=== PATIENT | male | born 1990 | race Caucasian/White ===

== ENCOUNTER 2018-09-17 10:22 | Emergency (ER) | payer MEDICAID ==
[~2018-09-17] VITALS: Ht 180.3 cm; Wt 106.0 kg
[~2018-09-17 10:22] MED LIST: ARIP30TA7 PO; BENZ1TAB7 PO; CARB200T PO; CLON-527 PO; DIVA500T9 PO; HALO5AMP2 IM; LORA1TAB PO; QUET300T2 PO
[2018-09-17] MEDS ORDERED: acetaminophen 325mg tablet PO ONE (10:40)
[2018-09-17] MEDS ORDERED: normal saline 1000ML IV soln IVB ONE (10:40)
[2018-09-17 11:25] LABS: CLARITY,URINE CLEAR (Clear); COLOR,URINE YELLOW (Yellow); GLUCOSE, URINE NEGATIVE (Neg); KETONES,URINE NEGATIVE (Neg); LEUKOCYTE ESTERASE ,URINE NEGATIVE (Neg); NITRITES, URINE NEGATIVE (Neg); OCCULT BLOOD,URINE NEGATIVE (Neg); PROTEIN,URINE 100 mg/dl (Neg); UROBILINOGEN,URINE 0.2 E.U/dL (0.2-1.0)
[2018-09-17 11:28] LABS: BASOPHILS % (AUTO) 0.3 % (0-1); EOSINOPHILS # (AUTO) 0.1 X10'3 (0-0.9); HEMATOCRIT 36.7 % (42.0-52.0); HEMOGLOBIN 12.8 g/dl (14.0-17.9); LYMPHOCYTES # (AUTO) 0.8 X10'3 (1.1-4.8); LYMPHOCYTES % (AUTO) 11.2 % (21-51); MEAN CORPUSCULAR HEMOGLOBIN 32.5 PG (27.0-31.0); MEAN CORPUSCULAR HGB CONC 34.9 % (33.0-36.5); MEAN CORPUSCULAR VOLUME 93.2 FL (78-98); MEAN PLATELET VOLUME 9.7 FL (7.4-10.4); MONOCYTES # (AUTO) 1.4 X10'3 (0-0.9); MONOCYTES % (AUTO) 19.4 % (2-12); NEUTROPHILS # (AUTO) 4.8 X10'3 (1.8-7.7); NEUTROPHILS % (AUTO) 68.1 % (42-75); PLATELET COUNT 109 X10'3 (140-440); RED BLOOD COUNT 3.94 X10'6 (4.70-6.10); RED CELL DISTRIBUTION WIDTH 12.4 % (11.5-14.5)
[2018-09-17 11:29] LABS: UA COLLECTION TYPE URINAL
[2018-09-17 11:33] LABS: BACTERIA,URINE 1+ /HPF (Neg); CELLULAR CAST 0-4 /LPF (NEGATIVE); COARSE GRANULAR CAST 0-3 /LPF (NEGATIVE); MUCUS STRANDS FEW /LPF (Neg); RBC,URINE 0-2 /HPF (0-2); SQUAMOUS EPITHELIAL CELL,UR FEW /LPF (FEW); WBC,URINE 30-50 /HPF (0-4)
[2018-09-17 11:43] LABS: ALANINE AMINOTRANSFERASE 67 U/L (12-78); ALBUMIN 3.5 G/DL (3.4-5.0); ALKALINE PHOSPHATASE 52 IU/L (46-116); ANION GAP 10 (8-16); ASPARTATE AMINO TRANSFERASE 80 U/L (10-37); BILIRUBIN,TOTAL 0.3 MG/DL (0.1-1.0); BLOOD UREA NITROGEN 18 MG/DL (7-18); CALCIUM 8.1 MG/DL (8.5-10.1); CHLORIDE 99 MMOL/L (99-107); CREATININE 2.01 MG/DL (0.60-1.10); GLUCOSE 95 MG/DL (70-104); SODIUM 135 MMOL/L (135-145); TOTAL CARBON DIOXIDE 25.7 MMOL/L (24-32); eGFR 40 ML/MIN
[2018-09-17] MEDS ORDERED: normal saline 1000ml 1,000 ML IV ONE (12:45)
--- NOTE | 2018-09-17 13:57 | NUR ---
influenza A POSITIVE REPORTED TO SUZETTE MILLER
[2018-09-17] MEDS ORDERED: TAM75C PO (13:59)
[2018-09-17] MEDS ORDERED: CEPH-572 PO (14:04)
[2018-09-17] MEDS ORDERED: ONDA4TAB6 PO (14:05)
--- NOTE | 2018-09-17 14:26 | NUR ---
GISELA DIRECTOR AT [facility] CALLED. INFORMED HER OF DX. AND WILL BE PICKING PT UP IN 45MINUTES.
[2018-09-17 14:30] VITALS: BP 128/58
== END 2018-09-17 14:43 | disposition home or self-care (01) ==
LOC: ER 10:23
DX: J09.X2 Influenza due to identified novel influenza A virus with other respiratory manifestations (principal); E86.0 Dehydration; N39.0 Urinary tract infection, site not specified; F17.210 Nicotine dependence, cigarettes, uncomplicated; F15.90 Other stimulant use, unspecified, uncomplicated; Z88.0 Allergy status to penicillin; Z88.1 Allergy status to other antibiotic agents; Z79.899 Other long term (current) drug therapy; Z56.0 Unemployment, unspecified; Z59.0 Homelessness; Z60.2 Problems related to living alone
CPT/HCPCS: 36415; 80053; 81001; 83605; 85025; 87088; 87502; 87503; 96360; 96361; 99284; J7030

== ENCOUNTER 2020-10-11 15:56 | Emergency (ER) | payer MEDICAID ==
[~2020-10-11] VITALS: Ht 177.8 cm; Wt 264.0 kg
[~2020-10-11 15:56] MED LIST changes: +ONDA4TAB6 PO
--- NOTE | 2020-10-11 16:02 | NUR ---
RECD ORIGINAL [id number] FROM COMMUNICATIONS OFFICER - COPY MADE FOR CHART
--- NOTE | 2020-10-11 16:25 | NUR ---
U/A SENT TO LAB BELONGINGS COLLECTED AND LOGGED BY ADDIS/DARREN
[2020-10-11 16:30] LABS: MEAN CORPUSCULAR VOLUME 91.1 FL (78-98); MONOCYTES # (AUTO) 0.7 X10'3 (0-0.9)
[2020-10-11 16:31] LABS: CLARITY,URINE CLEAR (Clear); COLOR,URINE STRAW (Yellow); GLUCOSE, URINE NEGATIVE (Neg); KETONES,URINE NEGATIVE (Neg); LEUKOCYTE ESTERASE ,URINE NEGATIVE (Neg); NITRITES, URINE NEGATIVE (Neg); OCCULT BLOOD,URINE NEGATIVE (Neg); PROTEIN,URINE NEGATIVE (Neg); UROBILINOGEN,URINE 0.2 E.U/dL (0.2-1.0)
[2020-10-11 16:32] LABS: BASOPHILS % (AUTO) 0.5 % (0-1); EOSINOPHILS # (AUTO) 0.2 X10'3 (0-0.9); EOSINOPHILS % (AUTO) 3.3 % (0-6); HEMATOCRIT 37.1 % (42.0-52.0); LYMPHOCYTES # (AUTO) 1.9 X10'3 (1.1-4.8); LYMPHOCYTES % (AUTO) 25.2 % (21-51); MEAN CORPUSCULAR HEMOGLOBIN 31.9 PG (27.0-31.0); MEAN PLATELET VOLUME 8.7 FL (7.4-10.4); NEUTROPHILS # (AUTO) 4.6 X10'3 (1.8-7.7); PLATELET COUNT 167 X10'3 (140-440); RED BLOOD COUNT 4.08 X10'6 (4.70-6.10); RED CELL DISTRIBUTION WIDTH 13.6 % (11.5-14.5); WHITE BLOOD COUNT 7.4 X10'3 (4.5-11.0)
[2020-10-11 16:35] LABS: UA COLLECTION TYPE VOIDED
[2020-10-11 16:39] LABS: URINE AMPHETAMINE SCREEN NEGATIVE (Neg); URINE BARBITUATE SCREEN NEGATIVE (Neg); URINE BENZODIAZEPINES SCREEN NEGATIVE (Neg); URINE CANNABINOID SCREEN NEGATIVE (Neg); URINE COCAINE SCREEN NEGATIVE (Neg); URINE METHADONE SCREEN NEGATIVE (Neg); URINE OPIATE SCREEN NEGATIVE (Neg); URINE PHENCYCLIDINE SCREEN NEGATIVE (Neg)
[2020-10-11 16:41] LABS: ALANINE AMINOTRANSFERASE 42 U/L (12-78); ALBUMIN 3.6 G/DL (3.4-5.0); ALKALINE PHOSPHATASE 78 IU/L (46-116); ANION GAP 12 (8-16); ASPARTATE AMINO TRANSFERASE 27 U/L (10-37); BILIRUBIN,TOTAL 0.2 MG/DL (0.1-1.0); BLOOD UREA NITROGEN 5 MG/DL (7-18); BUN/CREATININE RATIO 4.5 (5.4-32.0); CALCIUM 8.5 MG/DL (8.5-10.1); CHLORIDE 102 MMOL/L (99-107); CREATININE 1.11 MG/DL (0.60-1.10); GLUCOSE 118 MG/DL (70-104); POTASSIUM 3.3 MMOL/L (3.5-5.1); SODIUM 138 MMOL/L (135-145); TOTAL CARBON DIOXIDE 24.2 MMOL/L (24-32); TOTAL PROTEIN 7.3 G/DL (6.4-8.2); eGFR 78 ML/MIN
[2020-10-11 16:50] LABS: ETHANOL < 0.010 GM/DL (0.0-0.010)
--- NOTE | 2020-10-11 19:12 | NUR ---
Dinner tray given to patient.
--- NOTE | 2020-10-11 19:53 | NUR ---
Spoke to staff member "Mitch?" at [facility] in [place] (mental health facility). She stated that pt has had his medication today but she would not be able to get us a med list until the morning when the office opens up. Will call back in the morning to complete med reconcilation. Phone number is [phone].
--- NOTE | 2020-10-11 21:00 | NUR ---
Pt resting quietly, respirations normal, no s/s of distress.
[2020-10-11] MEDS: quetiapine 100mg tablet PO STA (21:39)
--- NOTE | 2020-10-11 22:00 | NUR ---
Pt resting quietly, respirations normal, no s/s of distress.
--- NOTE | 2020-10-11 23:22 | NUR ---
Pt resting quietly, respirations normal, no s/s of distress.
--- NOTE | 2020-10-12 01:00 | NUR ---
Pt resting quietly, respirations normal, no s/s of distress.
--- NOTE | 2020-10-12 02:46 | NUR ---
Pt resting quietly, respirations normal, no s/s of distress.
--- NOTE | 2020-10-12 03:50 | NUR ---
Pt resting quietly, respirations normal, no s/s of distress.
[2020-10-12 05:38] VITALS: BP 119/78
[2020-10-12] MEDS ORDERED: acetaminophen 325mg tablet PO PRN ×2 (10:30)
[2020-10-12] MEDS ORDERED: magnesium hydroxide 30ml (MOM) UD suspension PO PRN (10:30)
[2020-10-12] MEDS ORDERED: BENZ1TAB7 PO (11:09)
[2020-10-12] MEDS ORDERED: GUAN1TAB PO (11:34)
[2020-10-12] MEDS ORDERED: BENZ0.5T27 PO (11:34)
[2020-10-12] MEDS ORDERED: CHOL50002 PO (11:34)
[2020-10-12] MEDS ORDERED: FLUV50TA3 PO (11:34)
[2020-10-12] MEDS ORDERED: QUET-1 PO (11:34)
[2020-10-12] MEDS ORDERED: DIVA-81 PO ×2 (11:34→17:01)
[2020-10-12] MEDS ORDERED: LURA40TA3 PO (11:34)
[2020-10-12] MEDS ORDERED: LEVO50TA PO (11:34)
[2020-10-12] MEDS ORDERED: LITH150C8 PO (11:34)
[2020-10-12] MEDS ORDERED: DIVA-76 PO (11:34)
[2020-10-12] MEDS ORDERED: SYN0.088T PO (11:34)
[2020-10-12] MEDS ORDERED: CLON-513 PO (11:34)
--- NOTE | 2020-10-12 11:47 | NUR ---
covid swab collected
--- NOTE | 2020-10-12 12:33 | NUR ---
Breaking primary RN, pt was just up pascing, back in bed, laying on his right side, no needs at this time
--- NOTE | 2020-10-12 15:29 | NUR ---
Pt has been accepted to [facility].
== END 2020-10-12 16:11 | disposition home or self-care (01) ==
LOC: ER 15:57
DX: F25.0 Schizoaffective disorder, bipolar type (principal); Z20.828 Contact with and (suspected) exposure to other viral communicable diseases; F15.90 Other stimulant use, unspecified, uncomplicated; Z72.89 Other problems related to lifestyle; Z56.0 Unemployment, unspecified; Z60.9 Problem related to social environment, unspecified; Z88.0 Allergy status to penicillin; Z88.1 Allergy status to other antibiotic agents; Z79.899 Other long term (current) drug therapy
CPT/HCPCS: 36415; 80053; 80305; 80320; 81003; 84443; 85025; 87426; 99285